=== PATIENT | male | born 1960 | race African-American/Black ===

== ENCOUNTER → 2016-09-01 | Outpatient (CLI) | payer OTHER ==
[~2016-09-01] MED LIST: ACID REDUCER150 MG PO; ALEVE220 MG PO; ALLEGRA ALLERG180 MG PO; APRESOLINE10 MG PO; APRESOLINE50 MG PO; ASPIRIN325 MG PO; CALCIUM ACETAT667 M2 PO; CALCIUM ACETAT667 MG PO; CATAPRES0.2 MG PO; CELEBREX200 MG PO; CELEXA20 MG PO; CENTRUM SILVER1 EAC3 PO; COLACE100 MG PO; DITROPAN5 MG PO; ENDOCET 5-3251 EACH PO; FEOSOL325 MG PO; LABETALOL HCL100 MG PO; LABETALOL HCL300 MG PO; LASIX40 MG PO; LEVAQUIN500 MG PO; LITE COAT ASPI325 M1 PO; LOSARTAN POTAS100 MG PO; LOVENOX40 MG/0.4 SC; NICODERM CQ1 EAC1 TD; NIFEDIPINE ER30 MG PO; NORMODYNE,TRAN300 MG PO; NORVASC10 MG PO; OXYCONTIN10 MG PO; ROCALTROL0.25 MCG PO; SENNA-TIME S T1 EACH PO; TRANDATE300 MG PO; ULTRAM50 MG PO; ZOFRAN4 MG PO
== END | disposition home or self-care (01) ==
LOC: AMB 13:00
PROC: 0JPT3XZ Removal of Tunneled Vascular Access Device from Trunk Subcutaneous Tissue and Fascia, Percutaneous Approach (ICD-10-PCS; principal; 2016-09-01)
DX: Z45.2 Encounter for adjustment and management of vascular access device (principal); N18.6 End stage renal disease
CPT/HCPCS: 99212

== ENCOUNTER 2017-02-21 21:49 | Inpatient (IN) | payer OTHER ==
[~2017-02-21] VITALS: Ht 190.5 cm; Wt 74.6 kg
[2017-02-21 23:35] LABS: HEMATOCRIT 39.3 % (38.0-50.0); MCH 30.9 PG (29.0-34.0); MCHC 34.4 G/DL (30.0-36.0); MCV 89.9 FL (86-99); MEAN PLAT.VOLUME 11.4 uM^3 (9.0-12.4); PLATELET COUNT 101 K/uL (156-360); RBC DIS.WIDTH-CV 14.1 % (11.8-14.6); RBC DIS.WIDTH-SD 46.6 % (39-53); RED BLOOD COUNT 4.37 M/uL (4.00-5.50); WHITE BLOOD COUNT 9.4 K/uL (4.1-10.2)
[2017-02-21 23:52] LABS: CHLORIDE 96 mEq/L (99-109); POTASSIUM 5.5 mEq/L (3.7-5.4); SODIUM 130 mEq/L (136-147)
[2017-02-21 23:54] LABS: GLUCOSE 104 mg/dL (70-99)
[2017-02-21 23:56] LABS: ANION GAP 13 MEQ/L (2-14); TOTAL BILIRUBIN 0.5 mg/dL (0.0-1.0)
[2017-02-21 23:58] LABS: ALKALINE PHOSPHATASE 68 IU/L (3-129); GFR ESTIMATE (CALCULATED) 6 mL/min/
[2017-02-21 23:59] LABS: UREA NITROGEN (BUN) 60 mg/dL (9-23)
[2017-02-22 00:02] LABS: LIPASE 6 U/L (1.0-51.0)
[2017-02-22 00:05] LABS: TROP-I INTERPRETATION NEGATIVE; TROPONIN-I 0.03 ng/mL (0.0-0.30)
[2017-02-22 03:19] LABS: HDL CHOLESTEROL 58 MG/DL (Desirable>=40); LDL CHOLESTEROL 67 mg/dL (Desirable<100); NON-HDL CHOLESTEROL 83 mg/dL (Desirable<160); SAMPLE HEMOLYSIS CHECK 0; SAMPLE ICTERIC CHECK 0; SAMPLE LIPEMIA CHECK 0; TOTAL CHOLESTEROL 141 mg/dL (Desirable<200); TRIGLYCERIDES 79 MG/DL (Normal: <150)
[2017-02-22 05:47] VITALS: BP 170/91
[2017-02-22 07:31] LABS: ADD MIUA? YES; BILIRUBIN NEGATIVE; BLOOD NEGATIVE; COLOR YELLOW ((YELLOW)); GLUCOSE (STRIP) 50; KETONES NEGATIVE; LEUKOCYTES NEGATIVE; NITRITE NEGATIVE; PROTEIN (STRIP) 100; UROBILINOGEN 0.2 MG/DL (0.2-1.0)
[2017-02-22 07:56] LABS: BACTERIA RARE /HPF; EPITHELIAL CELLS RARE /HPF; MUCUS NONE SEEN /LPF; RED BLOOD CELLS 0-5 /HPF (0-5); WHITE BLOOD CELLS 0-5 /HPF (0-5)
[2017-02-22 08:01] LABS: Estimated Average Glucose 117 mg/dL (70-123); HEMOGLOBIN A1c (GLYCOHEMOGLOB) 5.7 % HGB (Below 5.7)
[2017-02-22 08:22] VITALS: BP 164/101
[2017-02-22 12:01] VITALS: BP 169/108
[2017-02-22] MEDS ORDERED: CATAPRES0.1 MG PO (13:05)
[2017-02-22] MEDS ORDERED: CALCIUM ACETAT667 M2 PO (13:07)
[2017-02-22] MEDS ORDERED: LOW DOSE ASPIRI81 M1 PO (13:08)
[2017-02-22] MEDS ORDERED: APRESOLINE50 MG PO (13:09)
[2017-02-22] MEDS ORDERED: NIFEDIPINE ER60 MG PO (13:11)
[2017-02-22] MEDS ORDERED: LIPITOR20 MG PO (13:11)
[2017-02-22] MEDS ORDERED: ZEPATIER 50-101 EACH PO (13:12)
[2017-02-22 17:03] VITALS: BP 166/106
[2017-02-22 19:55] VITALS: BP 170/102
[2017-02-22 22:42] VITALS: BP 144/85
[2017-02-23 03:56] VITALS: BP 135/92
[2017-02-23 06:45] LABS: EOSINOPHIL (%) 0 % (0-5); HEMATOCRIT 39.1 % (38.0-50.0); IMMATURE GRANULOCYTE (%) 0.4 % (0.0-0.7); INSTRUMENT ABS NEUTROPHIL CT 7.7 K/uL; LYMPHOCYTE COUNT 0.8 K/uL (1.0-2.8); MCH 31.7 PG (29.0-34.0); MCV 90.5 FL (86-99); MEAN PLAT.VOLUME 12.5 uM^3 (9.0-12.4); MONOCYTE (%) 10.2 % (3-12); NEUTROPHIL (%) 81.1 % (45-76); NEUTROPHIL COUNT 7.7 K/uL (1.8-6.4); PLATELET COUNT 131 K/uL (156-360); RBC DIS.WIDTH-CV 14.2 % (11.8-14.6); RBC DIS.WIDTH-SD 47.1 % (39-53); RED BLOOD COUNT 4.32 M/uL (4.00-5.50); WHITE BLOOD COUNT 9.4 K/uL (4.1-10.2)
[2017-02-23 07:09] LABS: ANION GAP 14 MEQ/L (2-14); CHLORIDE 95 MEQ/L (99-109); GFR ESTIMATE (CALCULATED) 9 mL/min/; GLUCOSE 105 mg/dL (70-99); POTASSIUM 4.8 MEQ/L (3.7-5.4); SAMPLE HEMOLYSIS CHECK 0; SAMPLE ICTERIC CHECK 0; SAMPLE LIPEMIA CHECK 0; SODIUM 134 MEQ/L (136-147); UREA NITROGEN (BUN) 37 mg/dL (9-23)
[2017-02-23 08:07] VITALS: BP 145/94
[2017-02-23 13:16] VITALS: BP 128/90
[2017-02-23 14:15] LABS: HBSG INDEX 0.23
[2017-02-23 20:00] VITALS: BP 137/88
[2017-02-23 21:23] LABS: WBC AREA COUNTED 0.4; WBC DILUTION 10; WHITE CELL RAW COUNT 110
[2017-02-23 21:32] LABS: APPEARANCE ORANGE-TURBID; MONONUCLEAR WBC'S 6 %; POLYNUCLEAR WBC'S 94 % (0-25); RED CELL COUNT 42000 /MM^3 (0-1); SYNOVIAL FLUID EOSINOPHILS 0 % (0-25)
[2017-02-23 21:37] LABS: WHITE CELL COUNT 27500 /MM^3 (0-200.0)
[2017-02-23 23:30] VITALS: BP 145/91
[2017-02-24 04:00] VITALS: BP 133/88
[2017-02-24 07:03] LABS: CRYSTALS NO CRYSTALS SEEN
[2017-02-24 08:50] LABS: EOSINOPHIL (%) 0.2 % (0-5); HEMATOCRIT 34.7 % (38.0-50.0); IMMATURE GRANULOCYTE (%) 0.1 % (0.0-0.7); INSTRUMENT ABS NEUTROPHIL CT 6.5 K/uL; LYMPHOCYTE COUNT 1.1 K/uL (1.0-2.8); MCH 31.5 PG (29.0-34.0); MCHC 34.9 G/DL (30.0-36.0); MCV 90.4 FL (86-99); MEAN PLAT.VOLUME 11.8 uM^3 (9.0-12.4); MONOCYTE COUNT 0.9 K/uL (0-0.8); NEUTROPHIL (%) 76.7 % (45-76); NEUTROPHIL COUNT 6.5 K/uL (1.8-6.4); PLATELET COUNT 157 K/uL (156-360); RBC DIS.WIDTH-CV 14.4 % (11.8-14.6); RBC DIS.WIDTH-SD 47.8 % (39-53); RED BLOOD COUNT 3.84 M/uL (4.00-5.50); WHITE BLOOD COUNT 8.5 K/uL (4.1-10.2)
[2017-02-24 09:12] LABS: ALKALINE PHOSPHATASE 59 IU/L (3-129); ANION GAP 16 MEQ/L (2-14); C-REACTIVE PROTEIN 106.9 MG/L (0-10); CHLORIDE 94 MEQ/L (99-109); GFR ESTIMATE (CALCULATED) 7 mL/min/; GLUCOSE 156 mg/dL (70-99); POTASSIUM 4.5 MEQ/L (3.7-5.4); SAMPLE HEMOLYSIS CHECK 0; SAMPLE ICTERIC CHECK 0; SAMPLE LIPEMIA CHECK 0; SODIUM 132 MEQ/L (136-147); TOTAL BILIRUBIN 0.4 MG/DL (0.0-1.0)
[2017-02-24 09:13] LABS: UREA NITROGEN (BUN) 56 mg/dL (9-23)
[2017-02-24 11:49] LABS: ERTH.SED.RATE 65 MM/HR (0-20)
[2017-02-24 12:57] VITALS: BP 145/96
[2017-02-24 15:40] VITALS: BP 127/83
[2017-02-25 00:33] VITALS: BP 142/76
[2017-02-25 07:59] VITALS: BP 127/87
[2017-02-25 14:21] VITALS: BP 131/82
[2017-02-26 00:24] VITALS: BP 133/90
[2017-02-26 06:51] LABS: EOSINOPHIL (%) 0.5 % (0-5); HEMATOCRIT 35.9 % (38.0-50.0); IMMATURE GRANULOCYTE (%) 0.5 % (0.0-0.7); INSTRUMENT ABS NEUTROPHIL CT 6.5 K/uL; LYMPHOCYTE COUNT 0.8 K/uL (1.0-2.8); MCH 31.6 PG (29.0-34.0); MCHC 34.3 G/DL (30.0-36.0); MCV 92.3 FL (86-99); MEAN PLAT.VOLUME 11.1 uM^3 (9.0-12.4); NEUTROPHIL (%) 77.1 % (45-76); NEUTROPHIL COUNT 6.5 K/uL (1.8-6.4); PLATELET COUNT 181 K/uL (156-360); RBC DIS.WIDTH-CV 14.3 % (11.8-14.6); RBC DIS.WIDTH-SD 48.4 % (39-53); RED BLOOD COUNT 3.89 M/uL (4.00-5.50); WHITE BLOOD COUNT 8.4 K/uL (4.1-10.2)
[2017-02-26 07:40] LABS: ALKALINE PHOSPHATASE 68 IU/L (3-129); ANION GAP 15 MEQ/L (2-14); CHLORIDE 92 MEQ/L (99-109); GFR ESTIMATE (CALCULATED) 7 mL/min/; POTASSIUM 5.3 MEQ/L (3.7-5.4); SAMPLE HEMOLYSIS CHECK 0; SAMPLE ICTERIC CHECK 0; SAMPLE LIPEMIA CHECK 0; SODIUM 130 MEQ/L (136-147); TOTAL BILIRUBIN 0.4 MG/DL (0.0-1.0); UREA NITROGEN (BUN) 66 mg/dL (9-23)
[2017-02-26 07:42] LABS: GLUCOSE 103 mg/dL (70-99)
[2017-02-26 14:51] VITALS: BP 128/86
[2017-02-27 00:02] VITALS: BP 119/76
[2017-02-27 06:10] LABS: EOSINOPHIL (%) 0.9 % (0-5); EOSINOPHIL COUNT 0.1 K/uL (0-0.3); IMMATURE GRANULOCYTE (%) 0.5 % (0.0-0.7); INSTRUMENT ABS NEUTROPHIL CT 5.6 K/uL; LYMPHOCYTE COUNT 1.2 K/uL (1.0-2.8); MCH 30.4 PG (29.0-34.0); MCHC 33.3 G/DL (30.0-36.0); MCV 91.3 FL (86-99); MEAN PLAT.VOLUME 11.3 uM^3 (9.0-12.4); MONOCYTE (%) 15.7 % (3-12); MONOCYTE COUNT 1.3 K/uL (0-0.8); NEUTROPHIL (%) 68.5 % (45-76); NEUTROPHIL COUNT 5.6 K/uL (1.8-6.4); PLATELET COUNT 232 K/uL (156-360); RBC DIS.WIDTH-CV 14.2 % (11.8-14.6); RBC DIS.WIDTH-SD 47.8 % (39-53); RED BLOOD COUNT 4.27 M/uL (4.00-5.50); WHITE BLOOD COUNT 8.2 K/uL (4.1-10.2)
[2017-02-27 06:34] LABS: ALKALINE PHOSPHATASE 75 IU/L (3-129); ANION GAP 16 MEQ/L (2-14); CHLORIDE 89 MEQ/L (99-109); GFR ESTIMATE (CALCULATED) 10 mL/min/; GLUCOSE 103 mg/dL (70-99); POTASSIUM 5.1 MEQ/L (3.7-5.4); SAMPLE HEMOLYSIS CHECK 0; SAMPLE ICTERIC CHECK 0; SAMPLE LIPEMIA CHECK 0; SODIUM 132 MEQ/L (136-147); TOTAL BILIRUBIN 0.5 MG/DL (0.0-1.0); UREA NITROGEN (BUN) 46 mg/dL (9-23)
[2017-02-27 08:35] VITALS: BP 120/80
[2017-02-27 17:20] VITALS: BP 146/82
[2017-02-27 21:11] VITALS: BP 157/93
[2017-02-27 21:26] VITALS: BP 148/91
[2017-02-28 00:27] VITALS: BP 120/76
[2017-02-28 08:19] VITALS: BP 141/88
[2017-02-28 20:32] VITALS: BP 135/95
[2017-02-28 23:33] VITALS: BP 184/100
[2017-03-01 07:31] LABS: HEMATOCRIT 34.8 % (38.0-50.0); MCH 30.8 PG (29.0-34.0); MCHC 34.8 G/DL (30.0-36.0); MCV 88.5 FL (86-99); MEAN PLAT.VOLUME 11.3 uM^3 (9.0-12.4); PLATELET COUNT 258 K/uL (156-360); RBC DIS.WIDTH-CV 13.7 % (11.8-14.6); RBC DIS.WIDTH-SD 44.8 % (39-53); RED BLOOD COUNT 3.93 M/uL (4.00-5.50); WHITE BLOOD COUNT 11.6 K/uL (4.1-10.2)
[2017-03-01 07:44] LABS: ANION GAP 21 MEQ/L (2-14); CHLORIDE 86 MEQ/L (99-109); POTASSIUM 5.9 MEQ/L (3.7-5.4); SAMPLE HEMOLYSIS CHECK 0; SAMPLE ICTERIC CHECK 0; SAMPLE LIPEMIA CHECK 0; SODIUM 127 MEQ/L (136-147)
[2017-03-01 07:51] LABS: GFR ESTIMATE (CALCULATED) 6 mL/min/; GLUCOSE 142 mg/dL (70-99); UREA NITROGEN (BUN) 93 mg/dL (9-23)
[2017-03-01 07:55] LABS: EOSINOPHIL (%) 0 % (0-5); IMMATURE GRANULOCYTE (%) 0.6 % (0.0-0.7); IMMATURE GRANULOCYTE COUNT 0.1 K/uL; INSTRUMENT ABS NEUTROPHIL CT 9.5 K/uL; LYMPHOCYTE COUNT 0.7 K/uL (1.0-2.8); MONOCYTE (%) 10.8 % (3-12); MONOCYTE COUNT 1.3 K/uL (0-0.8); NEUTROPHIL (%) 82.1 % (45-76); NEUTROPHIL COUNT 9.5 K/uL (1.8-6.4)
[2017-03-01 21:12] VITALS: BP 143/90
[2017-03-01 23:45] VITALS: BP 139/84
[2017-03-02 05:35] LABS: HEMATOCRIT 30.3 % (38.0-50.0); MCH 31.8 PG (29.0-34.0); MCHC 34.7 G/DL (30.0-36.0); MCV 91.8 FL (86-99); MEAN PLAT.VOLUME 11.3 uM^3 (9.0-12.4); PLATELET COUNT 231 K/uL (156-360); RBC DIS.WIDTH-SD 47.2 % (39-53)
[2017-03-02 06:36] LABS: ALKALINE PHOSPHATASE 64 IU/L (3-129); ANION GAP 13 MEQ/L (2-14); CHLORIDE 93 MEQ/L (99-109); GLUCOSE 122 mg/dL (70-99); POTASSIUM 4.9 MEQ/L (3.7-5.4); SAMPLE HEMOLYSIS CHECK 0; SAMPLE ICTERIC CHECK 0; SAMPLE LIPEMIA CHECK 0; SODIUM 133 MEQ/L (136-147); TOTAL BILIRUBIN 0.4 MG/DL (0.0-1.0); UREA NITROGEN (BUN) 52 mg/dL (9-23)
[2017-03-02 06:41] LABS: GFR ESTIMATE (CALCULATED) 9 mL/min/
[2017-03-02 07:33] LABS: EOSINOPHIL (%) 1.4 % (0-5); EOSINOPHIL COUNT 0.1 K/uL (0-0.3); IMMATURE GRANULOCYTE (%) 0.4 % (0.0-0.7); INSTRUMENT ABS NEUTROPHIL CT 4.6 K/uL; LYMPHOCYTE COUNT 1.1 K/uL (1.0-2.8); MONOCYTE COUNT 1.2 K/uL (0-0.8); NEUTROPHIL (%) 65.2 % (45-76); NEUTROPHIL COUNT 4.6 K/uL (1.8-6.4)
[2017-03-02 08:17] VITALS: BP 128/76
[2017-03-02 17:22] VITALS: BP 135/89
[2017-03-02 23:51] VITALS: BP 118/74
[2017-03-03 08:35] LABS: HEMATOCRIT 28.7 % (38.0-50.0); MCH 30.4 PG (29.0-34.0); MCHC 33.8 G/DL (30.0-36.0); MEAN PLAT.VOLUME 11.2 uM^3 (9.0-12.4); PLATELET COUNT 275 K/uL (156-360); RBC DIS.WIDTH-CV 13.7 % (11.8-14.6); RBC DIS.WIDTH-SD 45.2 % (39-53); RED BLOOD COUNT 3.19 M/uL (4.00-5.50); WHITE BLOOD COUNT 7.5 K/uL (4.1-10.2)
[2017-03-03 09:07] LABS: ANION GAP 16 MEQ/L (2-14); CHLORIDE 92 MEQ/L (99-109); GFR ESTIMATE (CALCULATED) 7 mL/min/; GLUCOSE 114 mg/dL (70-99); POTASSIUM 4.7 MEQ/L (3.7-5.4); SAMPLE HEMOLYSIS CHECK 0; SAMPLE ICTERIC CHECK 0; SAMPLE LIPEMIA CHECK 0; SODIUM 131 MEQ/L (136-147); UREA NITROGEN (BUN) 65 mg/dL (9-23)
[2017-03-03 09:11] LABS: EOSINOPHIL (%) 2.7 % (0-5); EOSINOPHIL COUNT 0.2 K/uL (0-0.3); IMMATURE GRANULOCYTE (%) 0.3 % (0.0-0.7); INSTRUMENT ABS NEUTROPHIL CT 4.9 K/uL; LYMPHOCYTE COUNT 1.2 K/uL (1.0-2.8); MONOCYTE (%) 15.1 % (3-12); MONOCYTE COUNT 1.1 K/uL (0-0.8); NEUTROPHIL (%) 65.2 % (45-76); NEUTROPHIL COUNT 4.9 K/uL (1.8-6.4)
[2017-03-03 12:52] VITALS: BP 138/78
== END 2017-03-03 17:15 | disposition home or self-care (01) | DRG 466 ==
LOC: EME 21:49 → EDOF 02-22 03:58 → 5SOUTH 02-22 03:58
PROVIDERS: Emergency Medicine; Hospitalist; Internal Medicine; Internal Medicine Nephrology; Orthopaedic Surgery
DX: T84.54XA Infection and inflammatory reaction due to internal left knee prosthesis, initial encounter (principal); M02.2 Postimmunization arthropathy; I12.0 Hypertensive chronic kidney disease with stage 5 chronic kidney disease or end stage renal disease; N18.6 End stage renal disease; B95.5 Unspecified streptococcus as the cause of diseases classified elsewhere; M00.9 Pyogenic arthritis, unspecified; E87.1 Hypo-osmolality and hyponatremia; I13.2 Hypertensive heart and chronic kidney disease with heart failure and with stage 5 chronic kidney disease, or end stage renal disease; B18.2 Chronic viral hepatitis C; D69.6 Thrombocytopenia, unspecified; E11.22 Type 2 diabetes mellitus with diabetic chronic kidney disease; Z99.2 Dependence on renal dialysis; D63.1 Anemia in chronic kidney disease; Y83.1 Surgical operation with implant of artificial internal device as the cause of abnormal reaction of the patient, or of later complication, without mention of misadventure at the time of the procedure; M21.371 Foot drop, right foot; M21.372 Foot drop, left foot; Z96.653 Presence of artificial knee joint, bilateral; R18.8 Other ascites; E87.5 Hyperkalemia; G58.9 Mononeuropathy, unspecified; F17.210 Nicotine dependence, cigarettes, uncomplicated; F12.10 Cannabis abuse, uncomplicated; R78.81 Bacteremia; F17.200 Nicotine dependence, unspecified, uncomplicated; M43.6 Torticollis; I50.9 Heart failure, unspecified; I73.9 Peripheral vascular disease, unspecified; Z79.82 Long term (current) use of aspirin; Z79.899 Other long term (current) drug therapy; Z80.9 Family history of malignant neoplasm, unspecified
CPT/HCPCS: 70450; 70551; 71020; 72131; 72148; 73560; 74176; 80048; 80053; 80061; 80069; 81003; 82436; 82550; 83036; 83605; 83690; 83930; 83935; 84133; 84300; 84484; 85025; 85027; 85651; 86140; 86900; 86901; 87040; 87070; 87075; 87077; 87186; 87205; 87340; 87801; 89051; 89060; 93005; 93306; 93880; 99281; 99285; C1776; J0330; J0690; J0696; J1170; J1644; J2250; J2270; J2405; J2765; J3010; J3370; J7030; J7050

== ENCOUNTER → 2018-04-14 | Outpatient (CLI) | payer MEDICARE, OTHER ==
[~2018-04-14] MED LIST changes: +CATAPRES0.1 MG PO; +LIPITOR20 MG PO; +LOW DOSE ASPIRI81 M1 PO; +NIFEDIPINE ER60 MG PO; +ZEPATIER 50-101 EACH PO
== END | disposition home or self-care (01) ==
LOC: CDC 08:51
DX: Z01.810 Encounter for preprocedural cardiovascular examination (principal); I70.25 Atherosclerosis of native arteries of other extremities with ulceration; I44.4 Left anterior fascicular block; I51.7 Cardiomegaly; R94.31 Abnormal electrocardiogram [ECG] [EKG]
CPT/HCPCS: 93000